=== PATIENT | female | born 1965 | race African-American/Black ===

== ENCOUNTER 2019-10-20 13:05 | Emergency (ER) | payer OTHER ==
[~2019-10-20] VITALS: Ht 172.7 cm; Wt 68.0 kg
[2019-10-20] MEDS ORDERED: ALPRAZOLAM 0.25 MG TABLET PO ONE (14:30)
[2019-10-20] MEDS ORDERED: ACETAMINOPHEN 325MG TABLET PO ONE (15:00)
[2019-10-20 15:49] VITALS: BP 171/97
== END 2019-10-20 15:55 | disposition home or self-care (01) ==
LOC: ER 13:05
DX: F41.9 Anxiety disorder, unspecified (principal); R51 Headache; I10 Essential (primary) hypertension
CPT/HCPCS: 99283